=== PATIENT | female | born 1940 | race Caucasian/White ===

== ENCOUNTER 2022-01-13 17:55 | Emergency (ER) | payer MEDICARE, BC, SELFPAY ==
[2022-01-13 17:59] VITALS: BP 208/110; PULSE 94; RESP 18; TEMP 36.4; O2SAT 95; BMI 30.2
--- NOTE | 2022-01-13 18:07 | ECG_ITS ---
[facility] Test Date: 2022-01-13 Pat Name: Berkley Valero Department: Room: Gender: Female Bag Patcher: : 1940 Requested By: Juanita Paul Order Number: [id number] Adelfo MD: Checo Beatty M.D. Measurements Intervals [place] Rate: 89 P: 73 NM: 186 QRS: 83 QRSD: 96 T: 85 QT: 384 QTc: 468 Interpretive Statements SINUS RHYTHM No previous ECG available for comparison Electronically Signed On 01-14-2022 12:13:05 ASSISTED LIVING HOUSEKEEPER by Checo Beatty M.D. [id number]
--- NOTE | 2022-01-13 18:07 | CTR_ITS ---
PROCEDURE INFORMATION: Exam: CT Cervical Spine Without Contrast Exam date and time: 01/13/2022 6:07 PM Age: 81 years old Clinical indication: Injury or trauma; Fall; Blunt trauma TECHNIQUE: Imaging protocol: Computed tomography images of the cervical spine without contrast. Radiation optimization: All CT scans at this facility use at least one of these dose optimization techniques: automated exposure control; mA and/or kV adjustment per patient size (includes targeted exams where dose is matched to clinical indication); or iterative reconstruction. COMPARISON: CT head wo con* [id number] 01/13/2022 6:27 PM RADIATION DOSE METRICS: Total DLP (mGy-cm): 627.17 FINDINGS: Bones/joints: Mild grade 1 anterolisthesis of C4 on C5. Discs/Spinal canal/Neural foramina: There are degenerative changes throughout the visualized spine including marginal osteophyte formations, endplate degenerative changes, and facet arthropathy. Multilevel disc space narrowing. Lungs: Lung apices are normal. Soft tissues: Unremarkable. CT/CT cervical spin wo con* [id number] IMPRESSION: There are degenerative changes as described above. No evidence for acute fracture.
--- NOTE | 2022-01-13 18:07 | CTR_ITS ---
PROCEDURE INFORMATION: Exam: CT Head Without Contrast Exam date and time: 01/13/2022 6:07 PM Age: 81 years old Clinical indication: Injury or trauma; Fall; Blunt trauma (contusions or hematomas) and concussion/head injury; Without loss of consciousness TECHNIQUE: Imaging protocol: Computed tomography of the head without contrast. Radiation optimization: All CT scans at this facility use at least one of these dose optimization techniques: automated exposure control; mA and/or kV adjustment per patient size (includes targeted exams where dose is matched to clinical indication); or iterative reconstruction. COMPARISON: No relevant prior studies available. RADIATION DOSE METRICS: Total DLP (mGy-cm): 744.46 FINDINGS: Brain: There is diffuse cerebral atrophy present, consistent with this patient's age. Periventricular and subcortical white matter low densities are present which at this age likely represent microvascular ischemic change. No evidence for large acute ischemic infarction. Please note acute ischemia can be occult by head CT. Cerebral ventricles: The ventricles are prominent out of proportion to the sulci. Paranasal sinuses: Visualized sinuses are unremarkable. No fluid levels. Mastoid air cells: Visualized mastoid air cells are well aerated. Vasculature: Calcified plaque is present within the carotid siphons. Bones/joints: Unremarkable. No acute fracture. Soft tissues: Right frontal scalp hematoma. CT/CT head wo con* [id number] IMPRESSION: 1. There is a right frontal scalp hematoma. No evidence for acute intracranial injury. 2. There is diffuse cerebral atrophy. Ventricles are prominent out of proportion to the sulci, consistent with a degree of overlying normal pressure hydrocephalus.
--- NOTE | 2022-01-13 18:10 | W.ED.FALL ---
Documented by User: Juanita Paul MD 01/13/22 19:39 HPI - Fall General: Chief Complaint: Fall Stated Complaint: head injury Time Seen by Provider: 01/13/22 18:06 Source: patient Mode of arrival: ambulatory Limitations: no limitations History of Present Illness: 81-year-old female who states that she was trying to clean out the 4 port of her car in the [place] parking lot. States she had bent over when she did she just kept falling and fell and hit her head on the concrete does have a small laceration to her forehead has neck pain as well. She states she had multiple falls like this in the past that she seems that when she starts to bend over going one way that she just continues to fall she denies passing out denies any chest pain. Associated symptoms-after fall: Reports headache(s) and neck pain; Denies abdominal pain or chest pain Review of Systems Const: Denies: fever(s), chills, body aches or change in appetite Eyes: Denies: blurry vision or eye discomfort ENMT: Denies: throat pain or dental pain Card: Denies: chest pain Resp: Denies: dyspnea GI: Denies: abdominal pain, nausea, vomiting or diarrhea : Denies: dysuria Musc: Reports: neck pain Skin/Breast: Denies: rash Neuro: Reports: headache(s) Psych: Denies: depression Jim/Lymph: Denies: easy bruising All/Imm: Denies: urticaria PFSH ED PFSH: Family History (Updated 01/13/22 @ 18:11 by Juanita Paul MD) Denies family history of CAD (coronary artery disease) Social History (Updated 01/13/22 @ 18:11 by Juanita Paul MD) Desire information about alcohol rehabilitation?: No Physical Exam Const: COMMON NORMALS: no acute distress, patient oriented x3 and healthy appearing HENMT: COMMON NORMALS: normocephalic; head/scalp not atraumatic (1cm laceration to right forehead) HEAD & SCALP: normocephalic; not atraumatic (1cm laceration to right forehead) Eye: COMMON NORMALS: Equal, round and reactive pupils present and EOMs intact bilaterally PUPIL: Yes Equal, round and reactive pupils present Neck/C-Spine: OTHER: tenderness along c spine Chest: COMMONS NORMALS: normal inspection of the chest and normal palpation of entire chest wall Resp: COMMON NORMALS: normal respiratory effort, No retractions, No use of accessory muscles and clear to auscultation bilaterally AUSCULTATION: clear to auscultation bilaterally Cardio: COMMON NORMALS: regular rate, regular rhythm and No murmurs present (Cardio) RATE: regular rate RHYTHM: regular rhythm GI: COMMON NORMALS: Normal to inspection, nondistended, normoactive bowel sounds present, Soft to palpation, non-tender and no masses PALPATION: Yes Soft to palpation Extremity: COMMON NORMALS: normal to inspection and full ROM Neuro: COMMON NORMALS: patient oriented x3, moves all extremities and no focal motor deficits Psych: COMMON NORMALS: mental status grossly normal, Normal thought process present and cooperative THOUGHT PROCESS: Normal thought process present Skin: COMMON NORMALS: no rashes or lesions noted and no wounds GENERAL SKIN EXAM: no rashes or lesions noted Course Vital Signs: Vital signs: Vital Signs Temperature 97.5 F L 01/13/22 17:59 Pulse Rate 88 01/13/22 19:01 Respiratory Rate 16 01/13/22 19:01 Blood Pressure 225/99 01/13/22 19:07 Pulse Oximetry 97 01/13/22 19:01 MDM - Fall Medical Decision Making Patient presents with closed head injury along with laceration from the fall laceration was repaired with sutures CT is here normal was hypertensive blood pressure is improving she does take blood pressure medicines at home. Her imaging here is normal she is stable for discharge is to follow-up with PCP and return if worsening. Lab Data : 01/13/22 18:19 01/13/22 18:19 Radiology Impressions Cervical Spine CT 01/13/22 18:07 IMPRESSION: There are degenerative changes as described above. No evidence for acute fracture. Head CT 01/13/22 18:07 IMPRESSION: 1. There is a right frontal scalp hematoma. No evidence for acute intracranial injury. 2. There is diffuse cerebral atrophy. Ventricles are prominent out of proportion to the sulci, consistent with a degree of overlying normal pressure hydrocephalus. Laboratory Results WBC 6.4 10^3/uL (4.0-10.0) 01/13/22 18:19 RBC 4.65 10^6/uL (4.1-5.3) 01/13/22 18:19 Hgb 13.5 g/dL (11.5-15.3) 01/13/22 18:19 Hct 42.5 % (37.0-47.0) 01/13/22 18:19 MCV 91.4 fl (81-99) 01/13/22 18:19 MCH 29.0 pg (28.0-34.0) 01/13/22 18:19 MCHC 31.8 g/dL (30.0-36.0) 01/13/22 18:19 RDW 12.5 % (12.1-15.1) 01/13/22 18:19 Plt Count 177 10^3/cmm (130-400) 01/13/22 18:19 MPV 9.0 fL (7.4-10.4) 01/13/22 18:19 Neut % (Auto) 59.1 % 01/13/22 18:19 Lymph % (Auto) 32.2 % 01/13/22 18:19 [place] % (Auto) 6.2 % 01/13/22 18:19 Eos % (Auto) 1.2 % 01/13/22 18:19 Baso % (Auto) 0.8 % 01/13/22 18:19 Neut # (Auto) 3.80 10^3/uL (1.8-7.7) 01/13/22 18:19 Lymph # (Auto) 2.1 10^3/uL (0.8-4.8) 01/13/22 18:19 [place] # (Auto) 0.4 10^3/uL (0.2-0.9) 01/13/22 18:19 Eos # (Auto) 0.1 10^3/uL (0.0-0.8) 01/13/22 18:19 Baso # (Auto) 0.1 10^3/uL (0.0-0.1) 01/13/22 18:19 Nucleated RBC % (auto) 0 % 01/13/22 18:19 Nucleated RBCs # 0.0 /100WBC 01/13/22 18:19 Sodium 140 mmol/L (136-145) 01/13/22 18:19 Potassium 3.7 mmol/L (3.5-5.1) 01/13/22 18:19 Chloride 99 mmol/L (98-107) 01/13/22 18:19 Carbon Dioxide 29 mmol/L (22-29) 01/13/22 18:19 Anion Gap 15.7 (5-19) 01/13/22 18:19 BUN 21 mg/dL (8-23) 01/13/22 18:19 Creatinine 1.0 mg/dL (0.5-0.9) H 01/13/22 18:19 GFR Calculation Not Reportable 01/13/22 18:19 Glucose 117 mg/dL (65-115) H 01/13/22 18:19 Calculated Osmolality 294 mOsm/kg (285-295) 01/13/22 18:19 Calcium 9.5 mg/dL (8.5-10.5) 01/13/22 18:19 Total Bilirubin 0.2 mg/dL (0.15-1.2) 01/13/22 18:19 AST 12 U/L (0-32) 01/13/22 18:19 ALT 10 U/L (0-33) 01/13/22 18:19 Alkaline Phosphatase 78 IU/L (35-105) 01/13/22 18:19 Total Protein 7.7 g/dL (6.6-8.7) 01/13/22 18:19 Albumin 4.5 g/dL (3.5-5.2) 01/13/22 18:19 Globulin 3.2 g/dL (1.3-4.6) 01/13/22 18:19 Discharge Plan Discharge Patient Disposition: Home Clinical Impression: Fall, Hypertension Head injury Qualifiers: Encounter type: initial encounter Qualified Code(s): S09.90XA - Unspecified injury of head, initial encounter Laceration of head Qualifiers: Encounter type: initial encounter Discharge Orders: Discharge ED (Routine); Ordered 01/13/22 Ordered By: Juanita Paul Discharge Diet: Advance as tolerated Discharge Activity: Resume usual activity Patient Instructions: Head Laceration (ED) Activity Restrictions/Additional Instructions: suture removal in 7 days Coding Level of Care Code ED Ecologist Technician for Earleg Fwd Exam Comprehensive Documented by User: FAITH Ruiz 01/13/22 19:49 HPI - Fall General: Chief Complaint: Fall Stated Complaint: head injury Time Seen by Provider: 01/13/22 18:06 [facility] ED PFSH: Family History (Updated 01/13/22 @ 18:11 by Juanita Paul MD) Denies family history of CAD (coronary artery disease) Social History (Updated 01/13/22 @ 18:11 by Juanita Paul MD) Desire information about alcohol rehabilitation?: No Procedures Laceration Laceration 1: Site: face (right forehead) Size (cm): 1 Description: linear Depth: simple, single layer Local Anesthetic: lidocaine 1% Amount of anesthesia used (mL): 2 Pre-repair: wound explored and irrigated extensively (saline) Skin layer closed with: nylon Size (cm): 6-0 Number of sutures: 1 Technique: simple, interrupted Course ED course: 1899, laceration to the right forehead was repaired with one 6-0 nylon suture. Tissue surrounding the laceration had significant abrasions so suture was applied over the use of dermal adhesive. Patient tolerated well. Vital Signs: Vital signs: Vital Signs Temperature 97.5 F L 01/13/22 17:59 Pulse Rate 88 01/13/22 19:01 Respiratory Rate 16 01/13/22 19:01 Blood Pressure 225/99 01/13/22 19:07 Pulse Oximetry 97 01/13/22 19:01 MDM - Fall Lab Data : 01/13/22 18:19 01/13/22 18:19 Radiology Impressions Cervical Spine CT 01/13/22 18:07 IMPRESSION: There are degenerative changes as described above. No evidence for acute fracture. Head CT 01/13/22 18:07 IMPRESSION: 1. There is a right frontal scalp hematoma. No evidence for acute intracranial injury. 2. There is diffuse cerebral atrophy. Ventricles are prominent out of proportion to the sulci, consistent with a degree of overlying normal pressure hydrocephalus. Laboratory Results WBC 6.4 10^3/uL (4.0-10.0) 01/13/22 18:19 RBC 4.65 10^6/uL (4.1-5.3) 01/13/22 18:19 Hgb 13.5 g/dL (11.5-15.3) 01/13/22 18:19 Hct 42.5 % (37.0-47.0) 01/13/22 18:19 MCV 91.4 fl (81-99) 01/13/22 18:19 MCH 29.0 pg (28.0-34.0) 01/13/22 18:19 MCHC 31.8 g/dL (30.0-36.0) 01/13/22 18:19 RDW 12.5 % (12.1-15.1) 01/13/22 18:19 Plt Count 177 10^3/cmm (130-400) 01/13/22 18:19 MPV 9.0 fL (7.4-10.4) 01/13/22 18:19 Neut % (Auto) 59.1 % 01/13/22 18:19 Lymph % (Auto) 32.2 % 01/13/22 18:19 [place] % (Auto) 6.2 % 01/13/22 18:19 Eos % (Auto) 1.2 % 01/13/22 18:19 Baso % (Auto) 0.8 % 01/13/22 18:19 Neut # (Auto) 3.80 10^3/uL (1.8-7.7) 01/13/22 18:19 Lymph # (Auto) 2.1 10^3/uL (0.8-4.8) 01/13/22 18:19 [place] # (Auto) 0.4 10^3/uL (0.2-0.9) 01/13/22 18:19 Eos # (Auto) 0.1 10^3/uL (0.0-0.8) 01/13/22 18:19 Baso # (Auto) 0.1 10^3/uL (0.0-0.1) 01/13/22 18:19 Nucleated RBC % (auto) 0 % 01/13/22 18:19 Nucleated RBCs # 0.0 /100WBC 01/13/22 18:19 Sodium 140 mmol/L (136-145) 01/13/22 18:19 Potassium 3.7 mmol/L (3.5-5.1) 01/13/22 18:19 Chloride 99 mmol/L (98-107) 01/13/22 18:19 Carbon Dioxide 29 mmol/L (22-29) 01/13/22 18:19 Anion Gap 15.7 (5-19) 01/13/22 18:19 BUN 21 mg/dL (8-23) 01/13/22 18:19 Creatinine 1.0 mg/dL (0.5-0.9) H 01/13/22 18:19 GFR Calculation Not Reportable 01/13/22 18:19 Glucose 117 mg/dL (65-115) H 01/13/22 18:19 Calculated Osmolality 294 mOsm/kg (285-295) 01/13/22 18:19 Calcium 9.5 mg/dL (8.5-10.5) 01/13/22 18:19 Total Bilirubin 0.2 mg/dL (0.15-1.2) 01/13/22 18:19 AST 12 U/L (0-32) 01/13/22 18:19 ALT 10 U/L (0-33) 01/13/22 18:19 Alkaline Phosphatase 78 IU/L (35-105) 01/13/22 18:19 Total Protein 7.7 g/dL (6.6-8.7) 01/13/22 18:19 Albumin 4.5 g/dL (3.5-5.2) 01/13/22 18:19 Globulin 3.2 g/dL (1.3-4.6) 01/13/22 18:19 Discharge Plan Discharge Patient Disposition: Home Clinical Impression: Fall, Hypertension Head injury Qualifiers: Encounter type: initial encounter Qualified Code(s): S09.90XA - Unspecified injury of head, initial encounter Laceration of head Qualifiers: Encounter type: initial encounter Discharge Orders: Discharge ED (Routine); Ordered 01/13/22 Ordered By: Juanita Paul Discharge Diet: Advance as tolerated Discharge Activity: Resume usual activity Patient Instructions: Head Laceration (ED) Activity Restrictions/Additional Instructions: suture removal in 7 days Coding Level of Care Code ED Ecologist Technician for [place] Fwd Exam Comprehensive
[2022-01-13 18:26] LABS: Basophils # 0.1 10^3/uL (0.0-0.1); Basophils % 0.8 %; Eosinophils # 0.1 10^3/uL (0.0-0.8); Eosinophils % 1.2 %; Hematocrit 42.5 % (37.0-47.0); Hemoglobin 13.5 g/dL (11.5-15.3); Lymphocytes # 2.1 10^3/uL (0.8-4.8); Lymphocytes % 32.2 %; Mean Corpuscular HGB Conc 31.8 g/dL (30.0-36.0); Mean Corpuscular Volume 91.4 fl (81-99); Monocytes # 0.4 10^3/uL (0.2-0.9); Monocytes % 6.2 %; Neutrophils % 59.1 %; Nucleated Red Blood Cells % 0 %; Platelet Count 177 10^3/cmm (130-400); Red Blood Count 4.65 10^6/uL (4.1-5.3); Red Cell Distribution Width 12.5 % (12.1-15.1); White Blood Count 6.4 10^3/uL (4.0-10.0)
[2022-01-13 18:45] LABS: Alanine Aminotransferase 10 U/L (0-33); Albumin Level 4.5 g/dL (3.5-5.2); Alkaline Phosphatase 78 IU/L (35-105); Anion Gap 15.7 (5-19); Aspartate Amino Transferase 12 U/L (0-32); Blood Urea Nitrogen 21 mg/dL (8-23); Calcium 9.5 mg/dL (8.5-10.5); Carbon Dioxide 29 mmol/L (22-29); Chloride 99 mmol/L (98-107); Globulin 3.2 g/dL (1.3-4.6); Glucose 117 mg/dL (65-115); Osmolality Calculated 294 mOsm/kg (285-295); Potassium 3.7 mmol/L (3.5-5.1); Sodium 140 mmol/L (136-145); Total Bilirubin 0.2 mg/dL (0.15-1.2); Total Protein 7.7 g/dL (6.6-8.7)
[2022-01-13 19:01] VITALS: BP 225/99; PULSE 88; RESP 16; O2SAT 97
[2022-01-13 19:07] VITALS: BP 225/99
[2022-01-13] MEDS: HYDROcodone-acetaminophen 5-325 mg Tablet 1 TAB PO (19:07)
[2022-01-13] MEDS: cloNIDine 0.1 mg Tablet PO (19:07)
[2022-01-13 20:02] VITALS: BP 230/115
== END 2022-01-13 20:04 | disposition home or self-care (01) ==
PROVIDERS: Emergency Provider Emergency Medicine
DX: S01.81XA Laceration without foreign body of other part of head, initial encounter (principal); S09.8XXA Other specified injuries of head, initial encounter; W18.30XA Fall on same level, unspecified, initial encounter
CPT/HCPCS: 12011; 70450; 72125; 80053; 85025; 93005; 99284